=== PATIENT | male | born 1990 | race Caucasian/White ===

== ENCOUNTER 2019-02-02 23:43 | Emergency (ER) | payer OTHER ==
[~2019-02-02] VITALS: Wt 113.4 kg
[~2019-02-02 23:43] MED LIST: ALBUTEROL0.09 MG/A2 INH; AMOXICILLIN500 MG PO; CARAFATE1 G1 PO; FIORICET 325 MG1 TAB PO; Fioricet 325 MG1 TAB PO; MOTRIN800 MG PO; NAPROSYN500 MG PO; NEXIUM40 MG PO; NORFLEX100 MG PO; PREDNICOT20 MG PO; PRILOSEC20 MG PO; ULTRAM50 MG PO; ZYRTEC10 MG PO
[2019-02-02 23:44] VITALS: BP 115/80
== END 2019-02-03 03:35 | disposition home or self-care (01) ==
LOC: ED 23:43
DX: S93.401A Sprain of unspecified ligament of right ankle, initial encounter (principal); J45.909 Unspecified asthma, uncomplicated; X50.1XXA Overexertion from prolonged static or awkward postures, initial encounter; Y93.89 Activity, other specified; Y92.89 Other specified places as the place of occurrence of the external cause; Y99.0 Civilian activity done for income or pay

== ENCOUNTER → 2020-10-26 | Outpatient (CLI) | payer BC | END | disposition home or self-care (01) | LOC: COVID19 15:05 | PROVIDERS: ATTEND Internal Medicine | DX: U07.1 COVID-19 (principal) ==